=== PATIENT | female | born 1980 | race Hispanic/Latino ===

== ENCOUNTER 2017-09-19 10:06 | Day surgery (SDC) | payer OTHER ==
[2017-09-17 13:42] VITALS: BP 96/61
[2017-09-17 13:51] LABS: BASOPHILS % (AUTO) 0.5 % (0.0-5.0); EOSINOPHILS % (AUTO) 1.1 % (0.0-8.0); HEMATOCRIT 40.1 % (36-48); LYMPHOCYTES % (AUTO) 33.4 % (21.0-51.0); MEAN CORPUSCULAR HEMOGLOBIN 29.4 pg (27.0-33.0); MEAN CORPUSCULAR HGB CONC 33.8 g/dL (32.0-36.0); MEAN CORPUSCULAR VOLUME 87.1 fL (79-99); MONOCYTES % (AUTO) 7.4 % (3.0-13.0); NEUTROPHILS % (AUTO) 57.6 % (40.0-77.0); NUCLEATED RED BLOOD CELLS 0.1 % (0.0-0.19); PLATELET COUNT (AUTO) 367 K/uL (130-400); RED BLOOD CELL COUNT(AUTO) 4.61 MIL/uL (4.00-5.50); RED CELL DISTRIBUTION WIDTH 13.3 % (11.0-15.5); WHITE BLOOD COUNT (AUTO) 7.8 K/uL (4.8-10.8)
[2017-09-17 13:53] LABS: APPEARANCE,URINE Clear (CLEAR); BILIRUBIN,URINE Negative (NEGATIVE); COLOR,URINE Yellow (YELLOW); GLUCOSE, URINE (UA) Negative (NEGATIVE); KETONES,URINE Negative (NEGATIVE); LEUKOCYTE ESTERASE ,URINE Small (NEGATIVE); NITRATE,URINE Negative (NEGATIVE); OCCULT BLOOD,URINE Negative (NEGATIVE); PH,URINE 6.5 (5.0-8.0); PROTEIN,URINE Negative (NEGATIVE); UROBILINOGEN,URINE 0.2 mg/dL (0.2-1.0)
[2017-09-17 13:57] LABS: CREATININE 0.7 mg/dL (0.5-1.5); POTASSIUM 3.8 mmol/L (3.5-5.1)
[2017-09-17 14:03] LABS: INR 0.9 (0.85-1.15); PARTIAL THROMBOPLASTIN TIME 27.9 SEC (26.3-35.5); PROTHROMBIN TIME 9.5 SEC (9.6-11.6)
[2017-09-17 15:28] LABS: BACTERIA,URINE Rare /HPF (None Seen); RBC,URINE 0-1 /HPF (0-1)
[2017-09-17 15:29] LABS: SQUAMOUS EPITHELIAL CELL,UR Few /LPF (0-2)
[2017-09-19] VITALS (14 sets, daily range): BP systolic 105–118; BP diastolic 57–89
[~2017-09-19] VITALS: Ht 162.6 cm; Wt 72.5 kg
[2017-09-19] MEDS: CEFAZOLIN SODIUM 1 GM VIAL IVP SCH ×2 (10:30→16:00)
[2017-09-19] MEDS ORDERED: LACTATED RINGERS 1000ML 1,000 ML IV ONE (10:32)
[2017-09-19] MEDS ORDERED: LIDOCAINE PF 2% 5ML ABBOJECT ONE (15:02)
[2017-09-19] MEDS ORDERED: MIDAZOLAM HCL 1 MG/ML 2ML VIAL ONE (15:02)
[2017-09-19] MEDS ORDERED: ONDANSETRON HCL 4 MG/2 ML VIAL ONE (15:02)
[2017-09-19] MEDS ORDERED: PROPOFOL 10 MG/ML 20ML VIAL IV ONE (15:02)
[2017-09-19] MEDS ORDERED: GLYCOPYRROLATE 0.2 MG/ML 5 ML VIAL ONE (15:02)
[2017-09-19] MEDS ORDERED: SUCCINYLCHOLINE 200MG/10ML SYR ONE (15:02)
[2017-09-19] MEDS ORDERED: DEXAMETHASONE SOD PHOSPHATE 10MG/ML 1ML VIAL ONE (15:02)
[2017-09-19] MEDS ORDERED: FENTANYL CITRATE PF 50 MCG/1 ML 2ML VIAL ONE ×2 (15:03→16:15)
[2017-09-19] MEDS ORDERED: KETOROLAC TROMETHAMINE 30MG/ML ONE (17:28)
[2017-09-19] MEDS ORDERED: MEPERIDINE-PF 50 MG/ML SYG ONE (17:28)
== END 2017-09-19 18:52 | disposition home or self-care (01) ==
LOC: DAH 10:06
PROVIDERS: ATTEND Orthopaedic Surgery
DX: T84.89XA Other specified complication of internal orthopedic prosthetic devices, implants and grafts, initial encounter (principal); Y83.1 Surgical operation with implant of artificial internal device as the cause of abnormal reaction of the patient, or of later complication, without mention of misadventure at the time of the procedure; Z79.01 Long term (current) use of anticoagulants
CPT/HCPCS: 20680; 36415; 71046; 76000; 80048; 81001; 84703; 85025; 85610; 85730; 93005; A4218; A4649; A4930; A6223; J0330; J0690; J1100; J1885; J2001; J2175; J2250; J2405; J2704; J3010 ×2; J3490; J7120 ×2